=== PATIENT | female | born 1985 | race Caucasian/White ===

== ENCOUNTER 2022-10-03 19:43 | Emergency (ER) | payer BC ==
[2022-10-03 19:53] VITALS: BP 142/86; PULSE 77
[2022-10-03] MEDS ORDERED: Lidocaine 1% 10 ML MDV INJECT ONE (20:09)
== END 2022-10-03 22:20 | disposition home or self-care (01) ==
LOC: JD.ED 19:43 → SUPCPDRO 19:43 → JD.ED 22:20
DX: S61.210A Laceration without foreign body of right index finger without damage to nail, initial encounter (principal); W26.0XXA Contact with knife, initial encounter
CPT/HCPCS: 12001; 99282; J3490